=== PATIENT | female | born 1945 | race Two or more races ===

== ENCOUNTER 2018-09-01 17:46 | Inpatient (IN) | payer OTHER ==
[~2018-09-01] VITALS: Ht 157.5 cm; Wt 59.0 kg
[2018-09-01] MEDS ORDERED: SYNTHROID100 MCG PO (18:08)
[2018-09-01] MEDS ORDERED: JANUVIA50 MG PO (18:08)
[2018-09-01] MEDS ORDERED: COZAAR50 MG PO (18:08)
[2018-09-09] MEDS ORDERED: COZAAR50 MG PO (21:02)
[2018-09-09] MEDS ORDERED: ACETAMINOPHEN500 M1 PO (21:03)
[2018-09-09] MEDS ORDERED: NeurRONTin 100mg cap PO (21:04)
[2018-09-09] MEDS ORDERED: INDOCIN25 MG PO (21:04)
[2018-09-09] MEDS ORDERED: FAMOTIDINE20 MG PO (21:05)
[2018-09-09] MEDS ORDERED: SYNTHROID100 MCG PO (21:06)
[2018-09-09] MEDS ORDERED: Intestinex CAP PO (21:07)
[2018-09-09] MEDS ORDERED: INTEGRA PLUS C1 EACH PO (21:09)
== END 2018-09-09 21:50 | disposition home or self-care (01) | DRG 392 ==
LOC: ER 17:46 → MEDJ 09-02 21:53 → SEC-K 09-02 21:53 → MEDJ 09-02 22:36
PROVIDERS: ADMIT Internal Medicine Cardiovascular Disease
PROC: 8E0ZXY6 Isolation (ICD-10-PCS; principal; 2018-09-02)
PROC: BW21ZZZ Computerized Tomography (CT Scan) of Abdomen and Pelvis (ICD-10-PCS; 2018-09-02)
PROC: B246ZZZ Ultrasonography of Right and Left Heart (ICD-10-PCS; 2018-09-07)
PROC: CW1NLZZ Planar Nuclear Medicine Imaging of Whole Body using Gallium 67 (Ga-67) (ICD-10-PCS; 2018-09-07)
DX: K52.89 Other specified noninfective gastroenteritis and colitis (principal); I10 Essential (primary) hypertension; E03.8 Other specified hypothyroidism; K29.00 Acute gastritis without bleeding; M62.830 Muscle spasm of back; R50.9 Fever, unspecified; M79.7 Fibromyalgia; D64.89 Other specified anemias; E11.42 Type 2 diabetes mellitus with diabetic polyneuropathy; E11.319 Type 2 diabetes mellitus with unspecified diabetic retinopathy without macular edema; K57.30 Diverticulosis of large intestine without perforation or abscess without bleeding; E78.00 Pure hypercholesterolemia, unspecified; E78.1 Pure hyperglyceridemia; K76.0 Fatty (change of) liver, not elsewhere classified

== ENCOUNTER 2019-11-02 10:13 | Outpatient (CLI) | payer OTHER ==
[~2019-11-02 10:13] MED LIST: ACETAMINOPHEN500 M1 PO; COZAAR50 MG PO; FAMOTIDINE20 MG PO; INDOCIN25 MG PO; INTEGRA PLUS C1 EACH PO; Intestinex CAP PO; JANUVIA50 MG PO; NeurRONTin 100mg cap PO; SYNTHROID100 MCG PO
== END 2019-11-02 10:38 | disposition home or self-care (01) ==
LOC: NUCLEAR 10:13
DX: R50.9 Fever, unspecified (principal)
CPT/HCPCS: 78802; A9556

== ENCOUNTER 2021-01-15 14:14 | Outpatient (CLI) | payer OTHER | END 2021-01-15 14:37 | disposition home or self-care (01) | LOC: OFIC 805 14:14 | PROVIDERS: ATTEND Otolaryngology Otology & Neurotology | DX: R42 Dizziness and giddiness (principal); H61.23 Impacted cerumen, bilateral ==